=== PATIENT | male | born 1955 | race Caucasian/White ===

== ENCOUNTER 2024-08-27 15:26 | Emergency (ER) | payer MEDICARE, BC ==
[2024-08-27] MEDS ORDERED: Sodium Chloride 0.9% 10 ML Syringe FLUSH PRN (15:54)
[2024-08-27 16:00] LABS: BASOPHILS ABSOLUTE AUTO 0.01 10^3/uL (0.00-0.10); BASOPHILS PERCENT AUTO 0.2 % (0.0-1.0); EOSINOPHILS ABSOLUTE AUTO 0.04 10^3/uL (0.10-0.30); EOSINOPHILS PERCENT AUTO 0.8 % (1.0-3.0); HEMATOCRIT 40.1 % (40.0-52.0); HEMOGLOBIN 13.4 g/dL (13.0-17.0); IMMATURE GRAN ABSOLUTE AUTO 0.01 10^3/uL (0.00-0.04); IMMATURE GRAN PERCENT AUTO 0.2 % (0.0-0.4); LYMPHOCYTES ABSOLUTE AUTO 1.23 10^3/uL (1.00-4.00); LYMPHOCYTES PERCENT AUTO 25.3 % (20.0-40.0); MEAN CORPUSCULAR HEMOGLOBIN 30.9 pg (27.0-31.0); MEAN CORPUSCULAR HGB CONC 33.4 g/dL (32.0-36.0); MEAN CORPUSCULAR VOLUME 92.4 fL (82.0-92.0); MEAN PLATELET VOLUME 9.4 fL (7.4-10.4); MONOCYTES ABSOLUTE AUTO 0.36 10^3/uL (0.10-0.80); MONOCYTES PERCENT AUTO 7.4 % (2.0-8.0); NEUTROPHILS ABSOLUTE AUTO 3.21 10^3/uL (2.50-7.00); NEUTROPHILS PERCENT AUTO 66.1 % (50.0-70.0); PLATELET COUNT,PLT 125 10^3/uL (150-400); RED BLOOD CELL COUNT 4.34 10^6/uL (4.50-6.00); RED CELL DISTRIBUTION WIDTH 13.4 % (11.5-14.5); WHITE BLOOD CELL COUNT,WBC 4.86 10^3/uL (5.00-10.00)
[2024-08-27 16:18] LABS: ALANINE AMINOTRANSFERASE,ALT 37 U/L (14-63); ALBUMIN 3.64 g/dL (3.40-5.00); ALKALINE PHOSPHATASE 84 U/L (46-116); ANION GAP 13.6 mmol/L (5-15); ASPARTATE AMNIOTRANSFERASE,AST 19 U/L (15-37); B-TYPE NATRIURETIC PEPTIDE,BNP 49 pg/mL (0-100); BILIRUBIN TOTAL 0.6 mg/dL (0.2-1.0); BLOOD UREA NITROGEN,BUN 19 mg/dL (7-18); CALCIUM 8.8 mg/dL (8.7-10.3); CARBON DIOXIDE,CO2 25.5 mmol/L (21.0-32.0); CHLORIDE,CL 103 mmol/L (98-107); CREATININE 1.16 mg/dL (0.51-1.17); GLUCOSE RANDOM 121 mg/dL (70-140); POTASSIUM,K 4.1 mmol/L (3.5-5.1); PROTEIN TOTAL,TP 6.4 g/dL (6.4-8.2); SODIUM,NA 138 mmol/L (136-145)
[2024-08-27 16:20] LABS: ESTIMATED GFR 69 mL/min (>=60)
[2024-08-27] MEDS: methylPREDNISolone Sodium Succinate 125 MG/2 ML SDV IVPUSH ONE (16:52)
[2024-08-27] MEDS: LORazepam 2 MG/ML SDV IVPUSH ONE (16:58)
== END 2024-08-27 17:10 | disposition home or self-care (01) ==
LOC: KA.ED 15:26
DX: R07.89 Other chest pain (principal); M62.830 Muscle spasm of back; I25.10 Atherosclerotic heart disease of native coronary artery without angina pectoris; I25.2 Old myocardial infarction; N18.9 Chronic kidney disease, unspecified; Z79.82 Long term (current) use of aspirin; Z79.899 Other long term (current) drug therapy
CPT/HCPCS: 71045; 80053; 83690; 83880; 84484; 85025; 85379; J2060; J2919; 93010; 99284